=== PATIENT | male | born 1960 | race Caucasian/White ===

== ENCOUNTER 2022-06-04 16:07 | Outpatient (CLI) | payer OTHER, SELFPAY | END 2022-06-04 16:08 | disposition home or self-care (01) | PROVIDERS: PCP Internal Medicine; Visit Provider Internal Medicine | DX: R32 Unspecified urinary incontinence (principal); E78.5 Hyperlipidemia, unspecified; N40.0 Benign prostatic hyperplasia without lower urinary tract symptoms | CPT/HCPCS: 87086 ==

== ENCOUNTER 2022-06-20 08:05 | Outpatient (CLI) | payer OTHER, SELFPAY | END 2022-06-20 08:06 | disposition home or self-care (01) | LOC: NFLDREF 06-22 13:49 | PROVIDERS: PCP Internal Medicine; Referring Provider Internal Medicine; Visit Provider Internal Medicine | DX: R32 Unspecified urinary incontinence (principal); N39.0 Urinary tract infection, site not specified; Z12.5 Encounter for screening for malignant neoplasm of prostate; Z13.6 Encounter for screening for cardiovascular disorders | CPT/HCPCS: 80053; 80061; 84153; 87086 ==

== ENCOUNTER 2022-09-21 08:35 | Outpatient (CLI) | payer OTHER, SELFPAY | END 2022-09-21 08:36 | disposition home or self-care (01) | LOC: NFLDREF 09-22 08:34 | PROVIDERS: PCP Internal Medicine; Referring Provider Internal Medicine; Visit Provider Internal Medicine | DX: E11.9 Type 2 diabetes mellitus without complications (principal) | CPT/HCPCS: 82947 ==

== ENCOUNTER 2022-12-13 08:33 | Outpatient (CLI) | payer OTHER, SELFPAY | END 2022-12-13 08:34 | disposition home or self-care (01) | LOC: NFLDREF 12-15 20:16 | PROVIDERS: PCP Internal Medicine; Referring Provider Internal Medicine; Visit Provider Internal Medicine | DX: E11.9 Type 2 diabetes mellitus without complications (principal); E78.5 Hyperlipidemia, unspecified | CPT/HCPCS: 80053; 80061; 82043; 82570 ==

== ENCOUNTER 2023-07-26 08:57 | Outpatient (CLI) | payer OTHER, SELFPAY | END 2023-07-26 08:58 | disposition home or self-care (01) | LOC: NFLDREF 08-14 08:11 | PROVIDERS: PCP Internal Medicine; Referring Provider Internal Medicine; Visit Provider Internal Medicine | DX: E11.9 Type 2 diabetes mellitus without complications (principal) | CPT/HCPCS: 82043; 82570 ==

== ENCOUNTER 2023-08-20 13:00 | Outpatient (RCR) | payer OTHER, SELFPAY ==
--- NOTE | 2023-08-26 10:41 | OT.OPGNE2 ---
OT Outpatient General/Neuro Eval OT Outpatient General/Neuro Eval* Start: 08/13/23 19:46 Freq: Status: Active Protocol: Document 08/13/23 22:26 SMW (Rec: 08/25/23 22:27 SMW [id number]) E-signed By Janet Barone, OT OT Outpatient Evaluation Details Type Type Eval Complexity Low Outpatient History/Precautions Current Condition Referring Provider Dr Palacios Medical Diagnoses memory loss Treatment Diagnoses cognitive assessments Medical/Functional History Medical History Reviewed Yes Prior Medical History Prior Medical History Depression Social History Employment Status Retired Patient Subjective Subjective Patient Subjective I just feel like it is hard to stay on task sometimes. Pain Assessment Pain Pain No Cognitive Assessments Performed Oriented Patient oriented Person,Place,Time,Situation Cognitive Assessments Performed [place] Cognitive Assessment (MOCA) Results Assessment Assessment Assessment The patient is a 63 year old male referred to outpatient OT for memory concerns. 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 He reports that it is hard to stay on task at times. He was assessed for ADHD, however was not diagnosed with this. He reports forgetting names and words at times and repeating himself. He comes to OT to get a baseline on his memory. The MoCa was administered today with the patient scoring 25/30. 26 or greater is considered normal cognition. He lost points in attention(3) and memory (2). The patient was educated on simple memory strategies and luminosity to play daily on his phone or computer. He will return for 1 to 2 more appointments for further assessments and education. Occupational Therapy Treatment Plan - OP Potential Rehabilitation Potential Excellent Set Goals Goals Set with Patient Yes Goals Goals Within 3 visits, the patient will.. 1. complete appropriate cognitive assessments. 2. verbalize understanding of cognitive assessment results. 3. utilize 2 compensatory strategies to aid in patient's decreased memory. Treatment Plan Treatment Plan Evaluation,Self-Care/Home Management,Education Expected Frequency 1x Week Expected Duration 2-4 Weeks Certification Certification Statement I Certify That: Therapy Services Provided, Therapy Plan Established, Therapy Plan Reviewed Certification Information Clinic ID # [id number] Initial Certification Date 08/13/23 Provider Signature Required Yes Provider Signature Shows Agreement With POC & Medical Necessity Physician NPI Number Write NPI# Here Physician Comment/Change Comment or Changes Physician Signature & Date Requested Please Sign/Date Here
== END 2023-12-18 23:59 | disposition home or self-care (01) ==
PROVIDERS: PCP Internal Medicine; Visit Provider Internal Medicine
DX: R41.3 Other amnesia (principal); Z51.89 Encounter for other specified aftercare
CPT/HCPCS: 97165; 97535

== ENCOUNTER 2024-04-28 11:22 | Outpatient (CLI) | payer BC, SELFPAY | END 2024-04-28 11:23 | disposition home or self-care (01) | LOC: NFLDREF 23:01 | PROVIDERS: PCP Internal Medicine; Referring Provider Internal Medicine; Visit Provider Internal Medicine | DX: E11.9 Type 2 diabetes mellitus without complications (principal); N40.0 Benign prostatic hyperplasia without lower urinary tract symptoms; E78.5 Hyperlipidemia, unspecified; F32.A Depression, unspecified; Z12.5 Encounter for screening for malignant neoplasm of prostate | CPT/HCPCS: 80053; 80061; G0103 ==

== ENCOUNTER 2024-07-28 11:30 | Outpatient (CLI) | payer BC, SELFPAY ==
[2024-07-29 16:41] LABS: Carcinoembryonic Antigen 2.8 ng/mL (<=3.8)
== END 2024-07-28 11:31 | disposition home or self-care (01) ==
PROVIDERS: PCP Internal Medicine; Visit Provider Student in an Organized Health Care Education/Training Program
DX: K62.89 Other specified diseases of anus and rectum (principal)
CPT/HCPCS: 36415; 82378

== ENCOUNTER 2024-08-20 06:15 | Day surgery (SDC) | payer BC, SELFPAY ==
[2024-08-20 06:36] VITALS: BMI 31.1
[2024-08-20 06:42] VITALS: BP 134/81; PULSE 64; RESP 16; TEMP 37; O2SAT 94
[2024-08-20] MEDS: LACTATED RINGERS 500 ML 500 ML 125 ML IV (07:04)
[2024-08-20] MEDS: SODIUM CHLORIDE 0.9 % (FLUSH) 10 ML SYRINGE IVF (07:06)
--- NOTE | 2024-08-20 07:15 | W.PM.H&PU ---
History & Physical Update History & Physical Update H&P Reviewed and patient assessed: No changes noted
--- NOTE | 2024-08-20 07:30 | CRLHL7_ITS ---
For Patients: As a result of the Century Cures Act, medical imaging exams and procedure reports are released immediately into your electronic medical record. You may view this report before your referring provider. If you have questions, please contact your health care provider. Indication: Intra op Romario-Cath placement Technique: One fluoroscopic image of the chest. Fluoroscopic time 69.1 seconds. IMPRESSION: Fluoroscopic guidance for Port-A-Cath placement. Dictated by Lennox Burleson MD @ 08/20/2024 3:44:36 PM (Electronically Signed)
[2024-08-20] MEDS: BUPIVACAINE 0.5% 30 ML INJECTION (07:47)
[2024-08-20] MEDS: LIDOCAINE 1 % PF 30 ML INJECTION (07:47)
--- NOTE | 2024-08-20 08:16 | PM.GSPRC ---
Operative Note Date of procedure: 08/20/24 Pre-op diagnosis: Rectal adenocarcinoma Post-op diagnosis: Same Type of Procedure: Right internal jugular port a catheter placement Indications: Patient is a 64-year-old male with a new diagnosis rectal adenocarcinoma. He has been seen by Oncology, who recommended port placement and initiation of chemotherapy. Risks and benefits of operative intervention were discussed at length with the patient. Risks included but was not limited to: Bleeding, infection, risk of damage to surrounding structures, possible need for additional procedures and postoperative complications such as pneumonia, pulmonary emboli or AL. All questions and concerns were addressed with the patient agreeing to proceed. Procedure Description: After discussing the risks and benefits of the procedure, the patient signed informed consent.? The operative site was marked and the patient was brought to the operating room and placed on the operating table in supine position.? Care was taken to pad the patient's pressure points.?? The patient was then given sedation by anesthesia.?? The operative site was then prepped and draped in the usual sterile fashion.? A time-out was then performed. The patient's right internal jugular vein was visualized using ultrasound. Local anesthetic was injected into the neck skin above the vein. A skin teressa was made just over the vein with an 11 blade. Using ultrasound guidance the vein was then accessed percutaneously via Seldinger technique. Placement was confirmed with C-arm. Next local anesthetic was injected into the skin below the clavicle and along the proposed tract to the neck incision. A skin incision was then made with a 15 blade and a pocket created in the chest wall with cautery. A tunneler was then used to thread the catheter from the chest wall pocket to the neck incision. Once this was done fluoroscopy was brought into the field. Over the wire the tract was dilated using fluoroscopy. The wire and the dilator were then removed leaving the sheath intact in the vein. Through this the catheter was threaded. Using fluoroscopy the catheter was positioned into the distal SVC. The catheter was noted to flush and aspirate easily. The catheter was then connected to the port. The port was placed in the pocket and secured in place with 2 0 Prolene stay suture on the medial and lateral side of the port. It was noted to flush and aspirate easily. A final image by C-arm was obtained which showed the entire port, no kinks were noted. This was then locked with heparinized saline. The skin was closed with absorbable suture. Sterile dressings were applied. Instrument sponge and needle counts were correct at the end of the case. The patient was woken and taken to the PACU in stable condition. Findings: Normal RIJ vein. Anesthesia: MAC Surgeon: Fay Brown MD Estimated blood loss (mL): 10 Condition: stable Disposition: same day
[2024-08-20 08:20] VITALS: BP 93/53; PULSE 69; RESP 16; TEMP 36.7; O2SAT 91
--- NOTE | 2024-08-20 08:26 | P.ANES_ITS ---
Anesthesia Charges Start Date/Time Anesthesia Start Date: 08/20/24 Anesthesia Start Time: 07:25 Stop Date/Time Anesthesia Stop Date: 08/20/24 Anesthesia Stop Time: 08:20 Coding CPT Codes CPT Codes: ANESTH VASCULAR ACCESS - 19039 ([id number]) P2 - PATIENT W/MILD SYST DISEASE, QK - APPLIANCE FIXER 2-4 CNCRNT ANES PROC, QX - INCLINOMETER TESTER SVC W/ MD MED DIRECTION
--- NOTE | 2024-08-20 08:26 | P.ANES_ITS ---
Anesthesia Charges Start Date/Time Anesthesia Start Date: 08/20/24 Anesthesia Start Time: 07:25 Stop Date/Time Anesthesia Stop Date: 08/20/24 Anesthesia Stop Time: 08:20 Coding CPT Codes CPT Codes: ANESTH VASCULAR ACCESS - 33114 ([id number]) P2 - PATIENT W/MILD SYST DISEASE, QK - CIRCULAR SHEAR OPERATOR 2-4 CNCRNT ANES PROC, QX - PHYSICAL FITNESS TEACHER SVC W/ MD MED DIRECTION
--- NOTE | 2024-08-20 08:26 | W.ANESCHARGE ---
Anesthesia Charges Start Date/Time Anesthesia Start Date: 08/20/24 Anesthesia Start Time: 07:25 Stop Date/Time Anesthesia Stop Date: 08/20/24 Anesthesia Stop Time: 08:20 Coding CPT Codes CPT Codes: ANESTH VASCULAR ACCESS - 19994 ([id number]) P2 - PATIENT W/MILD SYST DISEASE, QK - BOOK SEWING MACHINE OPERATOR 2-4 CNCRNT ANES PROC, QX - COMMUNICATIONS STRATEGIST SVC W/ MD MED DIRECTION
--- NOTE | 2024-08-20 08:26 | W.ANESCHARGE ---
Anesthesia Charges Start Date/Time Anesthesia Start Date: 08/20/24 Anesthesia Start Time: 07:25 Stop Date/Time Anesthesia Stop Date: 08/20/24 Anesthesia Stop Time: 08:20 Coding CPT Codes CPT Codes: ANESTH VASCULAR ACCESS - 93473 ([id number]) P2 - PATIENT W/MILD SYST DISEASE, QK - GREEN CHAIN MARKER 2-4 CNCRNT ANES PROC, QX - DISTRIBUTION A CLASS LINEMAN SVC W/ MD MED DIRECTION
[2024-08-20 08:30] VITALS: BP 103/65; PULSE 69; RESP 16; O2SAT 94
[2024-08-20] MEDS: HEPARIN 500 UNIT/5 ML SYRINGE IVF (08:32)
[2024-08-20] MEDS: 0.9 % SODIUM CHLORIDE 50 ml INJECTION (08:32)
[2024-08-20 08:45] VITALS: BP 110/77; PULSE 70; RESP 16; O2SAT 95
== END 2024-08-20 09:05 | disposition home or self-care (01) ==
PROVIDERS: PCP Internal Medicine; Visit Provider Surgery
PROC: (CPT 36561; principal; 2024-08-20 07:30)
DX: Z45.2 Encounter for adjustment and management of vascular access device (principal); C20 Malignant neoplasm of rectum
CPT/HCPCS: 36561; 00532; 71045; 76000; 76998; C1788; J0665; J1100; J1642; J2003; J2250; J2405; J2704; J3010; J7120

== ENCOUNTER 2024-10-22 07:47 | Outpatient (CLI) | payer BC, SELFPAY | END 2024-10-22 07:48 | disposition home or self-care (01) | LOC: NFLDREF 10-24 22:59 | PROVIDERS: PCP Internal Medicine; Referring Provider Internal Medicine; Visit Provider Internal Medicine | DX: E11.9 Type 2 diabetes mellitus without complications (principal); Z79.84 Long term (current) use of oral hypoglycemic drugs | CPT/HCPCS: 82043; 82570 ==

== ENCOUNTER 2024-12-15 15:08 | Outpatient (CLI) | payer BC, SELFPAY | END 2024-12-15 15:09 | disposition home or self-care (01) | LOC: MRI 15:08 | PROVIDERS: PCP Internal Medicine; Visit Provider Radiology Radiation Oncology | DX: C20 Malignant neoplasm of rectum (principal) | CPT/HCPCS: 72195 ==

== ENCOUNTER 2025-01-26 08:45 | Outpatient (RCR) | payer BC, SELFPAY ==
[2024-08-26 14:22] LABS: Hematocrit* 36.8 % (37.0-53.0); Hemoglobin* 11.7 gm/dL (13.5-17.5); Immature Granulocytes Abs Auto 0.02 K/uL (0.00-0.30); Immature Granulocytes Pct Auto 0.4 %; Lymphocytes Absolute Auto 1.23 K/uL (0.90-2.90); Mean Corpuscular HGB Conc 32 gm/dL (32-36); Mean Corpuscular Hemoglobin 26 pg (26-34); Mean Corpuscular Volume 82 fL (80-100); RDW Coefficient of Variation % 16.0 % (11.5-15.5); Red Blood Count* 4.51 m/uL (4.30-5.90); White Blood Count* 5.27 K/uL (4.50-11.00)
--- NOTE | 2024-08-26 14:23 | ONC.NURNOTE ---
Patient arrived alone for teaching, went through chemotherapy with breast cancer so felt ok to review info sent with patient and in binder. Reviewed with patient routine with labs/MD/chemo administration. Reviewed information in binder/Chemotherapy drugs/ant-emetics/self-care/after hours care/CADD pump/side effects of medications/diet Had patient fill out stress thermometer and fill out consents. Labs draw and patient left with binder and no further questions at this time.
[2024-08-26 14:25] LABS: Slide Review Reflex No
[2024-08-26 14:27] LABS: Albumin* 3.9 g/dL (3.3-5.0); Chloride* 103 mmol/L (96-114)
[2024-08-26 14:28] LABS: Potassium* 3.7 mmol/L (3.6-5.1)
[2024-08-26 14:30] LABS: Alanine Aminotransferase* 24 U/L (4-50); Alkaline Phosphatase* 65 U/L (40-150); Aspartate Amino Transferase* 29 U/L (12-35); Bilirubin Total* 0.2 mg/dL (0.1-1.5); Blood Urea Nitrogen* 18 mg/dL (7-30); Calcium* 8.9 mg/dL (8.4-10.6); Carbon Dioxide* 25 mmol/L (20-32); Creatinine* 1.0 mg/dL (0.5-1.5); Est. Creatinine Clearance* 78.44; Estimated Glomerular Filt Rate 84 ml/min; Glucose* 211 mg/dL (60-115); Total Protein* 6.7 g/dL (6.0-8.3)
[2024-08-26 16:24] LABS: Anion Gap 9 mEq/L (7-15); Sodium* 137 mmol/L (135-149)
[2024-08-31 09:37] VITALS: BP 127/65; PULSE 69; TEMP 36.3; O2SAT 94
[2024-08-31] MEDS: dexAMETHasone 20 MG in 0.9 % SODIUM CHLORIDE 100 ml 100 ML 408 MG IVPB (10:43)
[2024-08-31] MEDS: LEUCOVORIN CALCIUM 100 MG, TUBING SECONDARY 1 EACH in 5 % DEXTROSE 250 ML 250 ML 127 MG IV (11:12)
--- NOTE | 2024-09-01 15:18 | ONC.NURNOTE ---
Called pt to see how he was feeling first FOLFOX yesterday. Pt states he is doing well, slight fatigue, otherwise no concerns. Instructed pt to call [facility] if he has any questions or concerns.
[2024-09-02 11:40] VITALS: BP 159/61; PULSE 62; RESP 16; TEMP 36.4
[2024-09-02] MEDS: HEPARIN 500 UNIT/5 ML SYRINGE IVF (11:52)
[2024-09-02] MEDS: SODIUM CHLORIDE 0.9 % (FLUSH) 10 ML SYRINGE IVF (11:52)
[2024-09-14 08:09] LABS: Hematocrit* 36.3 % (37.0-53.0); Hemoglobin* 11.6 gm/dL (13.5-17.5); Immature Granulocytes Pct Auto 1.2 %; Mean Corpuscular HGB Conc 32 gm/dL (32-36); Mean Corpuscular Hemoglobin 26 pg (26-34); Mean Corpuscular Volume 83 fL (80-100); RDW Coefficient of Variation % 16.2 % (11.5-15.5); Red Blood Count* 4.40 m/uL (4.30-5.90); White Blood Count* 4.23 K/uL (4.50-11.00)
[2024-09-14 08:10] LABS: Immature Granulocytes Abs Auto 0.10 K/uL (0.00-0.30); Lymphocytes Absolute Auto 1.10 K/uL (0.90-2.90); Slide Review Reflex No
[2024-09-14 08:18] LABS: Albumin* 3.8 g/dL (3.3-5.0); Chloride* 105 mmol/L (96-114); Potassium* 4.1 mmol/L (3.6-5.1); Sodium* 134 mmol/L (135-149)
[2024-09-14 08:20] LABS: Bilirubin Total* 0.5 mg/dL (0.1-1.5); Blood Urea Nitrogen* 19 mg/dL (7-30); Creatinine* 0.9 mg/dL (0.5-1.5); Est. Creatinine Clearance* 78.44; Estimated Glomerular Filt Rate 95 ml/min
[2024-09-14 08:21] LABS: Alanine Aminotransferase* 24 U/L (4-50); Alkaline Phosphatase* 80 U/L (40-150); Anion Gap 4 mEq/L (7-15); Aspartate Amino Transferase* 34 U/L (12-35); Calcium* 8.9 mg/dL (8.4-10.6); Carbon Dioxide* 25 mmol/L (20-32); Glucose* 147 mg/dL (60-115); Total Protein* 6.4 g/dL (6.0-8.3)
[2024-09-14] MEDS: SODIUM CHLORIDE 0.9 % (FLUSH) 10 ML SYRINGE IVF ×2 (09:26→12:08)
[2024-09-14] MEDS: dexAMETHasone 20 MG in 0.9 % SODIUM CHLORIDE 100 ml 100 ML 408 MG IVPB (09:29)
[2024-09-14] MEDS: LEUCOVORIN CALCIUM 100 MG, TUBING SECONDARY 1 EACH in 5 % DEXTROSE 250 ML 250 ML 127.5 MG IV (09:58)
[2024-09-16] MEDS: HEPARIN 500 UNIT/5 ML SYRINGE IVF (09:46)
[2024-09-16] MEDS: SODIUM CHLORIDE 0.9 % (FLUSH) 10 ML SYRINGE IVF (09:47)
[2024-09-28 08:21] VITALS: BP 119/63; PULSE 76; RESP 18; TEMP 36.1; O2SAT 94
[2024-09-28 08:50] LABS: Hematocrit* 37.7 % (37.0-53.0); Hemoglobin* 11.9 gm/dL (13.5-17.5); Immature Granulocytes Abs Auto 0.03 K/uL (0.00-0.30); Immature Granulocytes Pct Auto 0.6 %; Lymphocytes Absolute Auto 1.07 K/uL (0.90-2.90); Mean Corpuscular HGB Conc 32 gm/dL (32-36); Mean Corpuscular Hemoglobin 26 pg (26-34); Mean Corpuscular Volume 83 fL (80-100); RDW Coefficient of Variation % 16.4 % (11.5-15.5); Red Blood Count* 4.55 m/uL (4.30-5.90); White Blood Count* 5.00 K/uL (4.50-11.00)
[2024-09-28 08:52] LABS: Slide Review Reflex No
[2024-09-28 09:08] LABS: Albumin* 4.0 g/dL (3.3-5.0); Chloride* 103 mmol/L (96-114); Potassium* 4.3 mmol/L (3.6-5.1); Sodium* 136 mmol/L (135-149)
[2024-09-28 09:10] LABS: Blood Urea Nitrogen* 18 mg/dL (7-30); Creatinine* 1.0 mg/dL (0.5-1.5); Est. Creatinine Clearance* 78.44; Estimated Glomerular Filt Rate 84 ml/min
[2024-09-28 09:11] LABS: Alanine Aminotransferase* 32 U/L (4-50); Alkaline Phosphatase* 54 U/L (40-150); Anion Gap 6 mEq/L (7-15); Aspartate Amino Transferase* 36 U/L (12-35); Bilirubin Total* 0.4 mg/dL (0.1-1.5); Calcium* 9.3 mg/dL (8.4-10.6); Carbon Dioxide* 27 mmol/L (20-32); Glucose* 212 mg/dL (60-115); Total Protein* 6.5 g/dL (6.0-8.3)
[2024-09-28] MEDS: 5 % DEXTROSE 250 ML IV (09:41)
[2024-09-28] MEDS: SODIUM CHLORIDE 0.9 % (FLUSH) 10 ML SYRINGE IVF ×2 (09:41→12:45)
[2024-09-28] MEDS: dexAMETHasone 20 MG in 0.9 % SODIUM CHLORIDE 100 ml 100 ML 408 MG IVPB (09:45)
[2024-09-28] MEDS: LEUCOVORIN CALCIUM 100 MG, TUBING SECONDARY 1 EACH in 5 % DEXTROSE 250 ML 250 ML 128 MG IV (10:35)
[2024-09-30] MEDS: HEPARIN 500 UNIT/5 ML SYRINGE IVF (09:41)
[2024-09-30] MEDS: SODIUM CHLORIDE 0.9 % (FLUSH) 10 ML SYRINGE IVF (09:41)
[2024-10-12 09:13] LABS: Hematocrit* 37.3 % (37.0-53.0); Hemoglobin* 11.8 gm/dL (13.5-17.5); Immature Granulocytes Pct Auto 0.5 %; Mean Corpuscular HGB Conc 32 gm/dL (32-36); Mean Corpuscular Hemoglobin 26 pg (26-34); Mean Corpuscular Volume 83 fL (80-100); RDW Coefficient of Variation % 17.0 % (11.5-15.5); Red Blood Count* 4.50 m/uL (4.30-5.90); White Blood Count* 3.96 K/uL (4.50-11.00)
[2024-10-12 09:37] LABS: Immature Granulocytes Abs Auto 0.00 K/uL (0.00-0.30); Lymphocytes Absolute Auto 1.00 K/uL (0.90-2.90); Slide Review Reflex No
[2024-10-12 09:41] LABS: Albumin* 3.9 g/dL (3.3-5.0); Chloride* 104 mmol/L (96-114); Potassium* 4.0 mmol/L (3.6-5.1); Sodium* 137 mmol/L (135-149)
[2024-10-12 09:44] LABS: Alanine Aminotransferase* 27 U/L (4-50); Alkaline Phosphatase* 57 U/L (40-150); Anion Gap 5 mEq/L (7-15); Aspartate Amino Transferase* 45 U/L (12-35); Bilirubin Total* 0.3 mg/dL (0.1-1.5); Blood Urea Nitrogen* 21 mg/dL (7-30); Calcium* 9.1 mg/dL (8.4-10.6); Carbon Dioxide* 28 mmol/L (20-32); Creatinine* 0.9 mg/dL (0.5-1.5); Est. Creatinine Clearance* 78.44; Estimated Glomerular Filt Rate 95 ml/min; Glucose* 176 mg/dL (60-115); Total Protein* 6.4 g/dL (6.0-8.3)
[2024-10-12] MEDS: 5 % DEXTROSE 250 ML IV (10:42)
[2024-10-12] MEDS: SODIUM CHLORIDE 0.9 % (FLUSH) 10 ML SYRINGE IVF ×2 (10:43→13:35)
[2024-10-12] MEDS: dexAMETHasone 20 MG in 0.9 % SODIUM CHLORIDE 100 ml 100 ML 408 MG IVPB (10:52)
[2024-10-12] MEDS: LEUCOVORIN CALCIUM 100 MG, TUBING SECONDARY 1 EACH in 5 % DEXTROSE 250 ML 250 ML 128 MG IV (11:25)
--- NOTE | 2024-10-12 14:52 | ONC.NURNOTE ---
Referral for radiation oncology faxed to [facility].
[2024-10-14 10:41] VITALS: BP 121/61; PULSE 63; RESP 16; TEMP 36.3; O2SAT 96
[2024-10-14] MEDS: SODIUM CHLORIDE 0.9 % (FLUSH) 10 ML SYRINGE IVF (10:45)
[2024-10-14] MEDS: HEPARIN 500 UNIT/5 ML SYRINGE IVF (10:45)
[2024-10-28 08:19] VITALS: BP 107/60; PULSE 77; RESP 16; TEMP 36.4; O2SAT 94
[2024-10-28 08:38] LABS: Hematocrit* 39.0 % (37.0-53.0); Hemoglobin* 12.5 gm/dL (13.5-17.5); Immature Granulocytes Pct Auto 0.3 %; Mean Corpuscular HGB Conc 32 gm/dL (32-36); Mean Corpuscular Hemoglobin 27 pg (26-34); Mean Corpuscular Volume 84 fL (80-100); RDW Coefficient of Variation % 17.9 % (11.5-15.5); Red Blood Count* 4.67 m/uL (4.30-5.90); White Blood Count* 3.80 K/uL (4.50-11.00)
[2024-10-28 08:49] LABS: Albumin* 3.9 g/dL (3.3-5.0); Chloride* 104 mmol/L (96-114); Sodium* 137 mmol/L (135-149)
[2024-10-28 08:50] LABS: Potassium* 4.0 mmol/L (3.6-5.1)
[2024-10-28 08:52] LABS: Alanine Aminotransferase* 31 U/L (4-50); Alkaline Phosphatase* 58 U/L (40-150); Anion Gap 9 mEq/L (7-15); Aspartate Amino Transferase* 40 U/L (12-35); Bilirubin Total* 0.6 mg/dL (0.1-1.5); Blood Urea Nitrogen* 18 mg/dL (7-30); Carbon Dioxide* 24 mmol/L (20-32); Creatinine* 0.9 mg/dL (0.5-1.5); Est. Creatinine Clearance* 78.44; Estimated Glomerular Filt Rate 95 ml/min; Total Protein* 6.9 g/dL (6.0-8.3)
[2024-10-28 08:53] LABS: Calcium* 9.0 mg/dL (8.4-10.6); Glucose* 213 mg/dL (60-115); Immature Granulocytes Abs Auto 0.00 K/uL (0.00-0.30); Lymphocytes Absolute Auto 1.10 K/uL (0.90-2.90)
[2024-10-28 08:54] LABS: Slide Review Reflex No
[2024-10-28] MEDS: 5 % DEXTROSE 250 ML IV (09:40)
[2024-10-28] MEDS: SODIUM CHLORIDE 0.9 % (FLUSH) 10 ML SYRINGE IVF (09:40)
[2024-10-28] MEDS: dexAMETHasone 20 MG in 0.9 % SODIUM CHLORIDE 100 ml 100 ML 408 MG IVPB (09:40)
[2024-10-28] MEDS: LEUCOVORIN CALCIUM 100 MG, TUBING SECONDARY 1 EACH in 5 % DEXTROSE 250 ML 250 ML 128 MG IV (10:25)
[2024-10-30] MEDS: SODIUM CHLORIDE 0.9 % (FLUSH) 10 ML SYRINGE IVF (10:33)
[2024-10-30] MEDS: HEPARIN 500 UNIT/5 ML SYRINGE IVF (10:33)
[2024-10-30 10:45] VITALS: BP 137/59; PULSE 64; RESP 16; TEMP 36.6; O2SAT 96
[2024-11-10 10:18] LABS: Hematocrit* 36.9 % (37.0-53.0); Hemoglobin* 11.6 gm/dL (13.5-17.5); Immature Granulocytes Abs Auto 0.02 K/uL (0.00-0.30); Immature Granulocytes Pct Auto 0.4 %; Lymphocytes Absolute Auto 1.00 K/uL (0.90-2.90); Mean Corpuscular HGB Conc 31 gm/dL (32-36); Mean Corpuscular Hemoglobin 26 pg (26-34); Mean Corpuscular Volume 84 fL (80-100); RDW Coefficient of Variation % 17.8 % (11.5-15.5); Red Blood Count* 4.40 m/uL (4.30-5.90); White Blood Count* 4.70 K/uL (4.50-11.00)
[2024-11-10 10:21] LABS: Chloride* 104 mmol/L (96-114)
[2024-11-10 10:22] LABS: Albumin* 3.7 g/dL (3.3-5.0); Potassium* 4.4 mmol/L (3.6-5.1); Slide Review Reflex No; Sodium* 136 mmol/L (135-149)
[2024-11-10 10:24] LABS: Alanine Aminotransferase* 22 U/L (4-50); Anion Gap 4 mEq/L (7-15); Aspartate Amino Transferase* 35 U/L (12-35); Blood Urea Nitrogen* 14 mg/dL (7-30); Carbon Dioxide* 28 mmol/L (20-32); Creatinine* 0.8 mg/dL (0.5-1.5); Est. Creatinine Clearance* 78.44; Estimated Glomerular Filt Rate 98 ml/min
[2024-11-10 10:25] LABS: Alkaline Phosphatase* 63 U/L (40-150); Bilirubin Total* 0.2 mg/dL (0.1-1.5); Calcium* 8.7 mg/dL (8.4-10.6); Glucose* 133 mg/dL (60-115); Total Protein* 6.5 g/dL (6.0-8.3)
[2024-11-10] MEDS: dexAMETHasone 20 MG in 0.9 % SODIUM CHLORIDE 100 ml 100 ML 408 MG IVPB (11:44)
[2024-11-10] MEDS: 5 % DEXTROSE 250 ML IV (11:45)
[2024-11-10] MEDS: LEUCOVORIN CALCIUM 100 MG, TUBING SECONDARY 1 EACH in 5 % DEXTROSE 250 ML 250 ML 128 MG IV (12:17)
[2024-11-12 11:39] VITALS: BP 148/63; PULSE 57; RESP 16; TEMP 36.3; O2SAT 95
[2024-11-12] MEDS: HEPARIN 500 UNIT/5 ML SYRINGE IVF (11:53)
[2024-11-12] MEDS: SODIUM CHLORIDE 0.9 % (FLUSH) 10 ML SYRINGE IVF (11:53)
[2024-11-24 08:35] VITALS: BP 126/63; PULSE 73; RESP 16; TEMP 36.3; O2SAT 94
[2024-11-24] MEDS: SODIUM CHLORIDE 0.9 % (FLUSH) 10 ML SYRINGE IVF (08:45)
[2024-11-24 08:50] LABS: Hematocrit* 38.7 % (37.0-53.0); Hemoglobin* 12.2 gm/dL (13.5-17.5); Immature Granulocytes Pct Auto 0.8 %; Mean Corpuscular HGB Conc 32 gm/dL (32-36); Mean Corpuscular Hemoglobin 27 pg (26-34); Mean Corpuscular Volume 84 fL (80-100); RDW Coefficient of Variation % 17.4 % (11.5-15.5); Red Blood Count* 4.60 m/uL (4.30-5.90); White Blood Count* 3.91 K/uL (4.50-11.00)
[2024-11-24 08:51] LABS: Immature Granulocytes Abs Auto 0.00 K/uL (0.00-0.30); Lymphocytes Absolute Auto 0.80 K/uL (0.90-2.90); Slide Review Reflex No
[2024-11-24 09:02] LABS: Chloride* 105 mmol/L (96-114)
[2024-11-24 09:03] LABS: Albumin* 3.8 g/dL (3.3-5.0); Potassium* 3.8 mmol/L (3.6-5.1); Sodium* 137 mmol/L (135-149)
[2024-11-24 09:05] LABS: Alanine Aminotransferase* 36 U/L (4-50); Anion Gap 9 mEq/L (7-15); Aspartate Amino Transferase* 49 U/L (12-35); Blood Urea Nitrogen* 13 mg/dL (7-30); Carbon Dioxide* 23 mmol/L (20-32); Creatinine* 0.8 mg/dL (0.5-1.5); Est. Creatinine Clearance* 78.44; Estimated Glomerular Filt Rate 98 ml/min
[2024-11-24 09:06] LABS: Alkaline Phosphatase* 80 U/L (40-150); Bilirubin Total* 0.4 mg/dL (0.1-1.5); Calcium* 8.7 mg/dL (8.4-10.6); Glucose* 173 mg/dL (60-115); Total Protein* 6.5 g/dL (6.0-8.3)
[2024-11-24] MEDS: dexAMETHasone 20 MG in 0.9 % SODIUM CHLORIDE 100 ml 100 ML 408 MG IVPB (09:50)
[2024-11-24] MEDS: LEUCOVORIN CALCIUM 100 MG, TUBING SECONDARY 1 EACH in 5 % DEXTROSE 250 ML 250 ML 127 MG IV (10:19)
[2024-11-24] MEDS: 5 % DEXTROSE 250 ML IV (10:46)
[2024-11-26] MEDS: HEPARIN 500 UNIT/5 ML SYRINGE IVF (10:41)
[2024-11-26] MEDS: SODIUM CHLORIDE 0.9 % (FLUSH) 10 ML SYRINGE IVF (10:41)
[2024-12-08 08:39] LABS: Hematocrit* 39.9 % (37.0-53.0); Hemoglobin* 12.6 gm/dL (13.5-17.5); Immature Granulocytes Pct Auto 0.6 %; Lymphocytes Absolute Auto 0.90 K/uL (0.90-2.90); Mean Corpuscular HGB Conc 32 gm/dL (32-36); Mean Corpuscular Hemoglobin 27 pg (26-34); Mean Corpuscular Volume 84 fL (80-100); RDW Coefficient of Variation % 17.3 % (11.5-15.5); Red Blood Count* 4.76 m/uL (4.30-5.90); White Blood Count* 3.56 K/uL (4.50-11.00)
[2024-12-08 08:42] LABS: Immature Granulocytes Abs Auto 0.00 K/uL (0.00-0.30); Slide Review Reflex No
[2024-12-08 08:49] VITALS: BP 128/63; PULSE 77; RESP 16; TEMP 36.5; O2SAT 94
[2024-12-08 08:56] LABS: Albumin* 3.8 g/dL (3.3-5.0); Chloride* 103 mmol/L (96-114); Potassium* 3.8 mmol/L (3.6-5.1); Sodium* 135 mmol/L (135-149)
[2024-12-08 08:59] LABS: Alanine Aminotransferase* 33 U/L (4-50); Alkaline Phosphatase* 81 U/L (40-150); Anion Gap 6 mEq/L (7-15); Aspartate Amino Transferase* 48 U/L (12-35); Bilirubin Total* 0.7 mg/dL (0.1-1.5); Blood Urea Nitrogen* 14 mg/dL (7-30); Calcium* 9.0 mg/dL (8.4-10.6); Carbon Dioxide* 26 mmol/L (20-32); Creatinine* 0.8 mg/dL (0.5-1.5); Est. Creatinine Clearance* 78.44; Estimated Glomerular Filt Rate 98 ml/min; Glucose* 199 mg/dL (60-115); Total Protein* 6.7 g/dL (6.0-8.3)
[2024-12-08] MEDS: SODIUM CHLORIDE 0.9 % (FLUSH) 10 ML SYRINGE IVF (09:43)
[2024-12-08] MEDS: dexAMETHasone 20 MG in 0.9 % SODIUM CHLORIDE 100 ml 100 ML 408 MG IVPB (09:44)
[2024-12-08] MEDS: 5 % DEXTROSE 250 ML IV (09:44)
[2024-12-08] MEDS: LEUCOVORIN CALCIUM 100 MG, TUBING SECONDARY 1 EACH in 5 % DEXTROSE 250 ML 250 ML 127 MG IV (10:06)
--- NOTE | 2024-12-09 15:01 | ONC.NURNOTE ---
Addendum entered by Melita Acosta RN 12/11/24 12:24: PA Submitted via [email or web address] Original Note: New Rx for capecitabine faxed to [facility]- insurance pharmacy preference phone [phone] fax [phone] 500mg tabs- 4 in the am and 3 in the pm supporting documenation included- insurance, demographics and med list
[2024-12-10 10:24] VITALS: BP 144/67; PULSE 57; RESP 17; TEMP 36.2; O2SAT 94
[2024-12-10] MEDS: HEPARIN 500 UNIT/5 ML SYRINGE IVF (10:35)
[2024-12-10] MEDS: SODIUM CHLORIDE 0.9 % (FLUSH) 10 ML SYRINGE IVF (10:35)
--- NOTE | 2024-12-15 14:51 | ONC.NURNOTE ---
Addendum entered by Melita Acosta RN 12/21/24 12:26: Capecitabine to be shipped today from [facility] $0 Copay 3 week supply- will need to refill X 1 start date next Thursday 12/28 baseline lab due 12/25/24 Original Note: PA approval completed thru 06/15/25 [facility] data base has been down for several days- so RX can not be processed with copay or to set up delivery Osbaldo was informed of this If his copay is over $100- then could move RX to [facility] Osbaldo anticipates no copay
[2024-12-25 10:51] LABS: Hematocrit* 39.8 % (37.0-53.0); Hemoglobin* 12.5 gm/dL (13.5-17.5); Immature Granulocytes Pct Auto 0.3 %; Mean Corpuscular HGB Conc 31 gm/dL (32-36); Mean Corpuscular Hemoglobin 27 pg (26-34); Mean Corpuscular Volume 84 fL (80-100); RDW Coefficient of Variation % 17.6 % (11.5-15.5); Red Blood Count* 4.72 m/uL (4.30-5.90); White Blood Count* 3.18 K/uL (4.50-11.00)
[2024-12-25] MEDS: SODIUM CHLORIDE 0.9 % (FLUSH) 10 ML SYRINGE IVF (10:54)
[2024-12-25] MEDS: HEPARIN 500 UNIT/5 ML SYRINGE IVF (10:54)
[2024-12-25 11:00] LABS: Immature Granulocytes Abs Auto 0.00 K/uL (0.00-0.30); Lymphocytes Absolute Auto 0.90 K/uL (0.90-2.90); Slide Review Reflex No
[2024-12-25 11:08] LABS: Albumin* 3.8 g/dL (3.3-5.0); Chloride* 105 mmol/L (96-114); Potassium* 3.9 mmol/L (3.6-5.1); Sodium* 136 mmol/L (135-149)
[2024-12-25 11:11] LABS: Alanine Aminotransferase* 29 U/L (4-50); Alkaline Phosphatase* 70 U/L (40-150); Anion Gap 5 mEq/L (7-15); Aspartate Amino Transferase* 42 U/L (12-35); Bilirubin Total* 0.4 mg/dL (0.1-1.5); Blood Urea Nitrogen* 14 mg/dL (7-30); Calcium* 8.8 mg/dL (8.4-10.6); Carbon Dioxide* 26 mmol/L (20-32); Creatinine* 0.8 mg/dL (0.5-1.5); Est. Creatinine Clearance* 78.44; Estimated Glomerular Filt Rate 98 ml/min; Glucose* 178 mg/dL (60-115); Total Protein* 6.8 g/dL (6.0-8.3)
--- NOTE | 2024-12-25 11:41 | ONC.NURNOTE ---
Lab results reviewed with Misty to start capecitabine on Saturday am financial writer will check in with patient again next week reviewed appts [facility] WBC and plt count reviewed side effects to watch for
--- NOTE | 2024-12-30 14:38 | ONC.NURNOTE ---
reports no concerns with start of capecitabine and XRT reviewed dosing aware to call if changes or concerns
--- NOTE | 2024-12-31 14:58 | ONC.NURNOTE ---
Called pt today to check in after starting Capecitabine this week. Pt didn't answer, LM on primary number inviting him to call back if he has any questions/concerns. Pt will be at [facility] on Saturday for labs.
[2025-01-04 10:52] LABS: Hematocrit* 37.5 % (37.0-53.0); Hemoglobin* 12.1 gm/dL (13.5-17.5); Immature Granulocytes Pct Auto 0.7 %; Mean Corpuscular HGB Conc 32 gm/dL (32-36); Mean Corpuscular Hemoglobin 27 pg (26-34); Mean Corpuscular Volume 85 fL (80-100); RDW Coefficient of Variation % 17.6 % (11.5-15.5); Red Blood Count* 4.43 m/uL (4.30-5.90); White Blood Count* 3.06 K/uL (4.50-11.00)
[2025-01-04 10:59] LABS: Immature Granulocytes Abs Auto 0.00 K/uL (0.00-0.30); Lymphocytes Absolute Auto 0.80 K/uL (0.90-2.90); Slide Review Reflex No
[2025-01-11] MEDS: SODIUM CHLORIDE 0.9 % (FLUSH) 10 ML SYRINGE IVF (08:25)
[2025-01-11] MEDS: HEPARIN 500 UNIT/5 ML SYRINGE IVF (08:25)
[2025-01-11 08:40] LABS: Hematocrit* 36.1 % (37.0-53.0); Hemoglobin* 11.6 gm/dL (13.5-17.5); Immature Granulocytes Pct Auto 1.0 %; Mean Corpuscular HGB Conc 32 gm/dL (32-36); Mean Corpuscular Hemoglobin 28 pg (26-34); Mean Corpuscular Volume 86 fL (80-100); RDW Coefficient of Variation % 18.4 % (11.5-15.5); Red Blood Count* 4.21 m/uL (4.30-5.90); White Blood Count* 2.92 K/uL (4.50-11.00)
[2025-01-11 08:49] LABS: Immature Granulocytes Abs Auto 0.00 K/uL (0.00-0.30); Lymphocytes Absolute Auto 0.70 K/uL (0.90-2.90); Slide Review Reflex No
[2025-01-11 08:53] LABS: Albumin* 3.7 g/dL (3.3-5.0); Chloride* 103 mmol/L (96-114); Potassium* 3.8 mmol/L (3.6-5.1); Sodium* 135 mmol/L (135-149)
[2025-01-11 08:56] LABS: Alanine Aminotransferase* 26 U/L (4-50); Alkaline Phosphatase* 58 U/L (40-150); Anion Gap 6 mEq/L (7-15); Aspartate Amino Transferase* 37 U/L (12-35); Bilirubin Total* 0.6 mg/dL (0.1-1.5); Blood Urea Nitrogen* 16 mg/dL (7-30); Carbon Dioxide* 26 mmol/L (20-32); Creatinine* 0.9 mg/dL (0.5-1.5); Est. Creatinine Clearance* 78.44; Estimated Glomerular Filt Rate 95 ml/min; Total Protein* 6.4 g/dL (6.0-8.3)
[2025-01-11 08:57] LABS: Calcium* 8.7 mg/dL (8.4-10.6); Glucose* 239 mg/dL (60-115)
--- NOTE | 2025-01-11 13:05 | ONC.NURNOTE ---
Capecitabine: patient stated that he received 110 tabs and requires 65 to complete the 25 days of cape/XRT Rx sent to [facility], but should be filled at [facility] Special[facility] global technical writer canceled the [facility] and called in a verbal refill to [facility] per [facility] pharmacist they dispensed #105 tabs (15 day supply) #70 called in for an additional 10 day supply to complete his XRT of 25 days total 500mg X 4 tabs in the am and 3 tabs 12 hours later in the pm within 30 min of meal
--- NOTE | 2025-01-12 11:56 | ONC.NURNOTE ---
Called patient today to follow up after his appt with Imelda Donahue APRN yesterday. Advised patient that Imelda spoke with Dr. Koroma and they want to cancel the CT scheduled on 01/20 and wait to to the CT scan once he has completed radiation. CT will be done at [place]. Patient scheduled over the phone for next week's weekly labs. Patient agreeable to the plan.
[2025-01-12 20:19] LABS: Carcinoembryonic Antigen 1.8 ng/mL (<=3.8)
--- NOTE | 2025-01-15 12:16 | ONC.NURNOTE ---
side effect check in using diclofenac cream BID to feet, with some improvement- there is no redness and skin intact will continue with current regimen weekly labs continue noticing some heat sensitivity with hands- skin intact with no redness continues to monitor for final 2 weeks of treatment received the rest of his RX from [facility]
[2025-01-18 09:31] LABS: Hematocrit* 35.8 % (37.0-53.0); Hemoglobin* 11.5 gm/dL (13.5-17.5); Immature Granulocytes Pct Auto 1.8 %; Mean Corpuscular HGB Conc 32 gm/dL (32-36); Mean Corpuscular Hemoglobin 28 pg (26-34); Mean Corpuscular Volume 87 fL (80-100); RDW Coefficient of Variation % 20.0 % (11.5-15.5); Red Blood Count* 4.12 m/uL (4.30-5.90); White Blood Count* 2.80 K/uL (4.50-11.00)
[2025-01-18 09:33] LABS: Immature Granulocytes Abs Auto 0.10 K/uL (0.00-0.30); Lymphocytes Absolute Auto 0.50 K/uL (0.90-2.90); Slide Review Reflex No
--- NOTE | 2025-01-18 11:12 | ONC.NURNOTE ---
Addendum entered by Melita Acosta RN 01/18/25 13:42: per Dr Koroma- Osbaldo will finish his capecitabine on Saturday01/29/25 and the extra doses that he took over the weekend will not be replaced last day of XRT is 02/01 Original Note: Osbaldo reports accidently taking his capecitabine on Saturday, both doses. reports tenderness of feet stable with diclofenac cream- no new concerns regarding hands or feet today lab results called to Os[facility]do
[2025-01-26] MEDS: HEPARIN 500 UNIT/5 ML SYRINGE IVF (09:05)
[2025-01-26] MEDS: SODIUM CHLORIDE 0.9 % (FLUSH) 10 ML SYRINGE IVF (09:05)
[2025-01-26 09:24] LABS: Hematocrit* 32.8 % (37.0-53.0); Hemoglobin* 10.7 gm/dL (13.5-17.5); Immature Granulocytes Pct Auto 1.6 %; Mean Corpuscular HGB Conc 33 gm/dL (32-36); Mean Corpuscular Hemoglobin 29 pg (26-34); Mean Corpuscular Volume 88 fL (80-100); RDW Coefficient of Variation % 21.7 % (11.5-15.5); Red Blood Count* 3.71 m/uL (4.30-5.90); White Blood Count* 2.48 K/uL (4.50-11.00)
[2025-01-26 09:26] LABS: Immature Granulocytes Abs Auto 0.00 K/uL (0.00-0.30); Lymphocytes Absolute Auto 0.30 K/uL (0.90-2.90); Slide Review Reflex No
[2025-01-26 09:39] LABS: Albumin* 3.7 g/dL (3.3-5.0); Chloride* 98 mmol/L (96-114); Sodium* 134 mmol/L (135-149)
[2025-01-26 09:40] LABS: Potassium* 3.7 mmol/L (3.6-5.1)
[2025-01-26 09:42] LABS: Alanine Aminotransferase* 20 U/L (4-50); Anion Gap 10 mEq/L (7-15); Aspartate Amino Transferase* 30 U/L (12-35); Blood Urea Nitrogen* 15 mg/dL (7-30); Carbon Dioxide* 26 mmol/L (20-32); Creatinine* 1.0 mg/dL (0.5-1.5); Est. Creatinine Clearance* 78.44; Estimated Glomerular Filt Rate 84 ml/min; Total Protein* 6.2 g/dL (6.0-8.3)
[2025-01-26 09:43] LABS: Alkaline Phosphatase* 60 U/L (40-150); Bilirubin Total* 0.7 mg/dL (0.1-1.5); Calcium* 8.6 mg/dL (8.4-10.6); Glucose* 222 mg/dL (60-115)
== END 2025-02-06 23:59 | disposition home or self-care (01) ==
LOC: CCIC 08:45
PROVIDERS: Clinical Nurse Specialist; PCP Internal Medicine; Referring Provider Internal Medicine; Visit Provider Internal Medicine Hematology & Oncology
DX: C19 Malignant neoplasm of rectosigmoid junction (principal); N40.2 Nodular prostate without lower urinary tract symptoms; Z51.81 Encounter for therapeutic drug level monitoring; Z79.899 Other long term (current) drug therapy
CPT/HCPCS: 36415; 36591; 80053; 82378; 85025; 96367; 96368; 96375; 96413; 96415; 96416; 99202; 99205; 99211; 99213; 99214; 99215; G0463; J0640; J1100; J1642; J2469; J7050; J9190; J9263